=== PATIENT | female | born 1995 | race Caucasian/White ===

== ENCOUNTER 2019-10-22 21:30 | Emergency (ER) | payer OTHER ==
[~2019-10-22] VITALS: Ht 152.4 cm; Wt 68.9 kg
[2019-10-22] MEDS ORDERED: ACET-2154 PO (21:40)
[2019-10-22] MEDS ORDERED: IV NORMAL SALINE 1000 ML BAG IV ONE (22:00)
[2019-10-22] MEDS ORDERED: ACETAMINOPHEN 650 MG/20.3 ML LIQUID UDC PO ONE (22:00)
[2019-10-22] MEDS ORDERED: ACETAMINOPHEN 325 MG TABLET ONE (22:19)
[2019-10-22 22:26] LABS: *BILIRUBIN,URIN NEGATIVE (NEGATIVE); *BLOOD, URINE 2+ (NEGATIVE); *CLARITY,URINE CLEAR (CLEAR); *COLOR,URINE YELLOW (YELLOW); *KETONES,URINE 2+ (NEGATIVE); *UROBILINOGEN,URINE 0.2 E.U./dl (NORMAL); LEUKOCYTE ESTERASE ,URINE 1+ (NEGATIVE); NITRITE, URINE NEGATIVE (NEGATIVE); UGLUCOSE NEGATIVE (NEGATIVE)
[2019-10-22 22:29] LABS: BASOPHILS % (AUTO) 0.4 % (0.0-2.0); EOSINOPHILS % (AUTO) 0.2 % (0.0-7.0); HEMATOCRIT 30.8 % (31.2-41.9); HEMOGLOBIN 10.8 g/dL (10.9-14.3); LYMPHOCYTES # (AUTO) 1.6 K/uL (20.0-40.0); LYMPHOCYTES % (AUTO) 15.2 % (20.5-51.5); MEAN CORPUSCULAR HEMOGLOBIN 31.8 uug (24.7-32.8); MEAN CORPUSCULAR HGB CONC 35 g/dL (32.3-35.6); MONOCYTES # (AUTO) 0.4 K/uL (2.0-10.0); MONOCYTES % (AUTO) 3.6 % (0.0-11.0); NEUTROPHILS # (AUTO) 8.6 K/uL (1.8-8.9); NEUTROPHILS % (AUTO) 80.6 % (38.5-71.5); PLATELET COUNT (AUTO) 223 K/uL (179-408); RED BLOOD CELL COUNT(AUTO) 3.39 MIL/uL (3.63-4.92); WHITE BLOOD COUNT (AUTO) 10.7 K/uL (3.8-11.8)
[2019-10-22 22:39] LABS: BILIRUBIN,DIRECT 0.2 mg/dL (0.0-0.2); BILIRUBIN,TOTAL 0.4 mg/dL (0.2-1.0); TOTAL PROTEIN, SERUM 6.7 g/dL (6.4-8.2)
[2019-10-22 22:41] LABS: BACTERIA,URINE FEW /HPF (NONE SEEN); SQUAMOUS EPITHELIAL CELL,UR FEW /HPF (NONE SEEN)
[2019-10-22 22:42] LABS: POTASSIUM 2.4 mmol/L (3.5-5.1)
--- NOTE | 2019-10-22 22:50 | NUR ---
reliability technologist here to do procedure.
[2019-10-22] MEDS ORDERED: POTASSIUM CHLORIDE 20 MEQ TAB.PRT.SR PO ONE (23:00)
[2019-10-22] MEDS ORDERED: CEFTRIAXONE 1 G in IV DEXTROSE 5% 50 ML IV ONE (23:00)
[2019-10-22] MEDS ORDERED: POTASSIUM CHLORIDE 20 MEQ TAB.PRT.SR ONE (23:30)
[2019-10-22] MEDS ORDERED: POTASSIUM CHLORIDE 50 ML ONE (23:30)
[2019-10-22] MEDS ORDERED: CEFTRIAXONE /D5W 50ML IVPB **ER PYXIS IV ONE (23:31)
[2019-10-22] MEDS: POTASSIUM CHLORIDE 50 ML IV SCH (23:50)
[2019-10-23] MEDS ORDERED: ACETAMINOPHEN 325 MG TABLET PO ONE (00:15)
[2019-10-23] MEDS ORDERED: KETOROLAC TROMETHAMINE 15 MG INJ IVP ONE (00:15)
[2019-10-23] MEDS ORDERED: KETOROLAC TROMETHAMINE 15 MG INJ ONE (00:19)
[2019-10-23] MEDS ORDERED: ACETAMINOPHEN 325 MG TABLET ONE (00:19)
[2019-10-23] MEDS: POTASSIUM CHLORIDE 50 ML IV SCH (00:30)
[2019-10-23] MEDS ORDERED: POTASSIUM CHLORIDE 50 ML ONE (00:30)
--- NOTE | 2019-10-23 01:35 | NUR ---
IV removed. Catheter intact and site benign. Pressure and 4x4 gauze applied to site. No bleeding noted.
[2019-10-23 01:41] VITALS: BP 105/62
--- NOTE | 2019-10-23 01:41 | NUR ---
Patient discharged to home in stable condition with taking patient home. Written and verbal after care instructions given. Patient verbalizes understanding of instructions. Stressed follow up or return to ER for worsening s/s.
== END 2019-10-23 01:42 | disposition home or self-care (01) ==
LOC: ER 21:33
DX: O91.22 Nonpurulent mastitis associated with the puerperium (principal); O72.2 Delayed and secondary postpartum hemorrhage; Z37.0 Single live birth; O86.20 Urinary tract infection following delivery, unspecified; E87.6 Hypokalemia; R50.9 Fever, unspecified; O92.79 Other disorders of lactation
CPT/HCPCS: 36415; 71045; 76856; 80048; 80076; 81001; 83605; 84145; 84484; 85025; 85730; 87040 ×2; 87086; 93005; 96361; 96365; 96375; 99285; J0696; J1885; J3480 ×2; 70030-TC; A4663; J3490; J7030